=== PATIENT | female | born 1945 | race Caucasian/White ===

== ENCOUNTER → 2019-01-15 | Outpatient (CLI) | payer OTHER ==
[~2019-01-15] MED LIST: ADULT LOW DOSE81 MG PO; AMLODIPINE-BEN1 EAC3 PO; APPEAREX2500 MCG PO; BONIVA150 MG PO; CALCIUM PO; CENTRUM TABLET1 TAB PO; ESTER-C500 M1 PO; ESTRACE0.5 MG PO; FIBER TABS625 MG PO; FISH OIL 1,0001 EAC5 PO; FLAX OIL1000 MG PO; FLOVENT DISKUS50 MCG IH; GLUCOSAMINE &1 EACH PO; HYDROCHLOROTH12.5 MG PO; LORATIDINE 10 M10 M1 PO; LUTEIN20 MG PO; PATANOL; PROTONIX40 M2 PO
== END ==
LOC: CAT 10:39
DX: Z13.6 Encounter for screening for cardiovascular disorders (principal); E78.00 Pure hypercholesterolemia, unspecified; I25.10 Atherosclerotic heart disease of native coronary artery without angina pectoris

== ENCOUNTER → 2019-07-28 | Outpatient (CLI) | payer OTHER, MEDICARE | LOC: SJCVCIMAG 09:43 | PROVIDERS: ATTEND Internal Medicine Cardiovascular Disease | DX: I49.3 Ventricular premature depolarization (principal); E78.00 Pure hypercholesterolemia, unspecified; I10 Essential (primary) hypertension; R00.2 Palpitations; R07.9 Chest pain, unspecified; E78.5 Hyperlipidemia, unspecified ==

== ENCOUNTER → 2021-02-28 | Outpatient (CLI) | payer OTHER, MEDICARE | LOC: SJCVCIMAG 06:36 | PROVIDERS: ATTEND Internal Medicine Cardiovascular Disease | DX: R94.31 Abnormal electrocardiogram [ECG] [EKG] (principal); I49.3 Ventricular premature depolarization; I07.1 Rheumatic tricuspid insufficiency; R00.2 Palpitations; I10 Essential (primary) hypertension; E78.00 Pure hypercholesterolemia, unspecified; Z79.82 Long term (current) use of aspirin; Z79.899 Other long term (current) drug therapy; Z88.8 Allergy status to other drugs, medicaments and biological substances ==